=== PATIENT | female | born 1990 | race Caucasian/White ===

== ENCOUNTER → 2017-02-18 | Outpatient (CLI) | payer OTHER | LOC: MW.CHOBGYN 15:58 | PROVIDERS: ATTEND Advanced Practice Midwife | DX: Z34.90 Encounter for supervision of normal pregnancy, unspecified, unspecified trimester (principal) | CPT/HCPCS: 36415; 85025; 86592; 86762; 86803; 86850; 86900; 86901; 87340; 87389 ==

== ENCOUNTER → 2017-03-04 | Outpatient (CLI) | payer OTHER ==
--- NOTE | 2017-03-07 14:45 | US ---
EXAM DATE: 03/04/17 PATIENT'S AGE: 26 Patient: CIARA GARZA Facility: [place], [place] Site . Site : 1990 Study: OB Pelvis [id number] 4:39:43 PM Ordering Physician: Tu Pitts Final Report: INDICATION: anatomical survey TECHNIQUE: Ultrasound OB pelvis transabdominal. Real-time acharya-scale imaging of the fetus was performed as well as color Doppler and spectral Doppler analysis of the umbilical artery. COMPARISON: None. FINDINGS: Sonographic imaging demonstrates a single living intrauterine gestation. Fetus demonstrates a regular cardiac rate of 142 beats per minute. Fetus has a cephalic orientation. The placenta lies posterior with borderline previa. Amniotic fluid volume appears normal. ANATOMICAL SURVEY: Lateral ventricles: Normal Posterior fossa: Normal Face: Normal Profile: Normal Spine: Normal 4 chamber heart: Normal RVOT: Normal LVOT: Normal Diaphragm: Normal Stomach: Normal Kidneys: Normal Bladder: Normal Cord insertion: Normal 3 vessel cord: Normal 4 extremities: Normal BIOMETRY DATA: Biparietal diameter: 5.1 cm, 21 weeks 4 days. Head circumference: 19.3 cm, 21 weeks 3 days. Abdominal circumference: 16.3 cm, 21 weeks 3 days. Femur length: 3.4 cm, 20 weeks 6 days. H/A ratio is 1.16 which is within the normal range. EFW is 409 grams, 73%. Gestational age by LMP is 20 weeks 5 days. Gestational age by ultrasound is 21 weeks 2 days. Estimated date of delivery by LMP is July 17, 2017. Estimated date of delivery by ultrasound is July 13, 2017. IMPRESSION: 1.Single viable intrauterine . 2.No intrinsic abnormalities noted on anatomic survey. 3. Posterior placenta is low-lying. This should be further evaluated on subsequent ultrasound exams. Dictated by Yann Sanderson MD @ Mar 07 2017 7:51AM (Electronic Signature) Report Signed by Proxy. MI
== END ==
LOC: MW.US 14:30
PROVIDERS: ATTEND Advanced Practice Midwife
DX: Z34.90 Encounter for supervision of normal pregnancy, unspecified, unspecified trimester (principal)
CPT/HCPCS: 76805; 76805-26

== ENCOUNTER 2017-07-14 13:31 | Inpatient (IN) | payer OTHER ==
[2017-07-14] MEDS ORDERED: Butorphanol 1 MG/ML SDV IVPUSH PRN (14:06)
[2017-07-14] MEDS ORDERED: Carboprost Tromethamine 250 MCG/1 ML Amp IM PRN (14:06)
[2017-07-14] MEDS ORDERED: Sodium Chloride 0.9% 2.5 ML Syringe FLUSH PRN (14:06)
[2017-07-14] MEDS ORDERED: Lidocaine 1% 50 ML MDV INJECT PRN (14:06)
[2017-07-14] MEDS ORDERED: Misoprostol 200 MCG Tab PO PRN (14:06)
[2017-07-14] MEDS ORDERED: Methylergonovine 0.2 MG/1 ML Amp IM PRN (14:06)
[2017-07-14] MEDS ORDERED: Sodium Chloride 0.9% 10 ML Syringe FLUSH PRN (14:06)
[2017-07-14] MEDS ORDERED: Nalbuphine 10 MG/1 ML Vial IVPUSH PRN (14:06)
[2017-07-14] MEDS ORDERED: Water For Irrigation,Sterile 1,000 ML Container IRR PRN (14:06)
[2017-07-14] MEDS ORDERED: Oxytocin/Lactated Ringers 30 UNIT/500 ML BAG IV SCH (14:15)
[2017-07-14] MEDS ORDERED: Lactated Ringers 1,000 ML IV SCH (14:15)
[2017-07-14] MEDS ORDERED: oxyCODONE 5 MG Tab PO PRN (15:47)
[2017-07-14] MEDS ORDERED: Ibuprofen 400 MG Tab PO PRN (15:47)
[2017-07-14] MEDS ORDERED: Acetaminophen 500 MG Tab PO PRN ×2 (15:47)
[2017-07-14] MEDS ORDERED: Lanolin 100% Cream 7 GM Tube TOP PRN (15:47)
[2017-07-14] MEDS ORDERED: Witch Hazel Medicated Pads 40/Jar TOP PRN (15:47)
[2017-07-14] MEDS ORDERED: Benzocaine/Menthol 20%-0.5% Spray 78 GM Cannister TOP PRN (15:47)
[2017-07-14] MEDS ORDERED: Bisacodyl 10 MG Supp RECTAL PRN (15:47)
[2017-07-14] MEDS: Ibuprofen 800 MG Tab PO PRN (16:06)
--- NOTE | 2017-07-14 17:47 | PCM.LDHP ---
L&D History of Present Illness - General Date of Service: 07/14/17 Admit Problem/Dx: Patient Status Order with Admit Dx/Problem 07/14/17 13:43 Patient Status [ADT] Routine Admission Diagnosis/Problem Admission Diagnosis/Problem - planned 07/14/17 17:45 26 yo EDC 07/18/2017 at 39 3/7wks/ O neg, RI, GBS neg. Comes to L&D in active labor. 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 Social & Family History - Family History Cardiac: Reports: Hypertension, [place] OBGYN: Reports: Psychiatric: Reports: Schizophrenia Oncologic: Reports: Breast - Tobacco Use Smoking Status *Q: Never Smoker Second Hand Smoke Exposure: No - Caffeine Use Caffeine Use: Reports: Coffee - Recreational Drug Use Recreational Drug Use: No H&P Review of Systems - Review of Systems: Review Of Systems: See Below General: Reports: No Symptoms HEENT: Reports: No Symptoms Pulmonary: Reports: No Symptoms Cardiovascular: Reports: No Symptoms Gastrointestinal: Reports: No Symptoms Genitourinary: Reports: No Symptoms Musculoskeletal: Reports: No Symptoms Skin: Reports: No Symptoms Psychiatric: Reports: No Symptoms Neurological: Reports: No Symptoms Hematologic/Lymphatic: Reports: No Symptoms Immunologic: Reports: No Symptoms L&D Exam - Exam Exam: See Below - Vital Signs Weight: 95.254 kg - OB Specific Contraction Intensity: Strong Movement: Active Heart Tones: Present Presentation: Vertex - Exam General: Alert, Oriented, Cooperative HEENT: Hearing Intact Lungs: Normal Respiratory Effort GI/Abdominal Exam: Soft, Non-Tender, No Organomegaly (gravid) Rectal Exam: Deferred Genitourinary: Cervical dilitation Back Exam: Full Range of Motion Extremities: Normal Range of Motion, Non-Tender, No Pedal Edema, Normal Capillary Refill Skin: Warm, Dry, Intact Neurological: Cranial Nerves Intact Psychiatric: Alert, Normal Affect, Normal Mood - Patient Data Lab Results Last 24 hrs: Laboratory Results - last 24 hr 07/14/17 07/14/17 Range/Units 14:29 14:29 WBC 17.82 H (4.0-11.0) K/uL RBC 4.72 (4.30-5.90) M/uL Hgb 12.3 (12.0-16.0) g/dL Hct 38.0 (36.0-46.0) % MCV 80.5 (80.0-98.0) fL MCH 26.1 L (27.0-32.0) pg MCHC 32.4 (31.0-37.0) g/dL RDW Std Deviation 41.1 (28.0-62.0) fl RDW Coeff of [place] 14 (11.0-15.0) % Plt Count 246 (150-400) K/uL MPV 10.90 (7.40-12.00) fL Nucleated RBC % 0.0 /100WBC Nucleated RBCs # 0 K/uL Blood Type O NEGATIVE Antibody Screen NEGATIVE Result Diagrams: 07/14/17 14:29 - Problem List (1) Supervision of normal IUP (intrauterine ) in primigravida SNOMED Code(s): 20403602, 078470970, 871330470, 389476925 ICD Code: Z34.00 - ENCNTR FOR SUPRVSN OF NORMAL FIRST , UNSP TRIMESTER Status: Acute Priority: High Current Visit: Yes Qualifiers: Trimester: third trimester Qualified Code(s): Z34.03 - Encounter for supervision of normal first , third trimester Problem List Initiated/Reviewed/Updated: Yes Orders Last 24hrs: Active Orders 24 hr Category Date Time Status May Shower [RC] ASDIRECTED Care 07/14/17 14:07 Inactive May Shower [RC] ASDIRECTED Care 07/14/17 15:47 Active Notify Provider [RC] PRN Care 07/14/17 14:07 Inactive Up ad Lu [RC] ASDIRECTED Care 07/14/17 13:43 Inactive Up ad Lu [RC] ASDIRECTED Care 07/14/17 14:07 Inactive Up ad Lu [RC] ASDIRECTED Care 07/14/17 15:47 Active Vital Signs [RC] PER UNIT ROUTINE Care 07/14/17 13:43 Inactive Vital Signs [RC] PER UNIT ROUTINE Care 07/14/17 14:07 Inactive Vital Signs [RC] PER UNIT ROUTINE Care 07/14/17 15:47 Active Regular Diet [DIET] Diet 07/14/17 Dinner Active RHIG WORKUP, [BBK] Routine Lab 07/14/17 16:53 Received Acetaminophen [Tylenol Extra Strength] Med 07/14/17 15:47 Active 1,000 mg PO Q4H PRN Acetaminophen [Tylenol Extra Strength] Med 07/14/17 15:47 Active 500 mg PO Q4H PRN Benzocaine/Menthol [Dermoplast Pain Relief 20%-0.5% Med 07/14/17 15:47 Active [place]] 78 gm TOP ASDIRECTED PRN Bisacodyl [Dulcolax] Med 07/14/17 15:47 Active 10 mg RECTAL .ONCE PRN Docusate Sodium [Colace] Med 07/14/17 15:47 Active 100 mg PO BID PRN Hydrocortisone [Proctozone-HC 2.5% Crm] Med 07/14/17 19:00 Active 1 gm TOP 5XDAY Ibuprofen [Motrin] Med 07/14/17 15:47 Active 400 mg PO Q4H PRN Ibuprofen [Motrin] Med 07/14/17 15:47 Active 800 mg PO Q6H PRN Lanolin [Lansinoh HPA] Med 07/14/17 15:47 Active See Dose Instructions TOP ASDIRECTED PRN Witch Vera [Tucks] Med 07/14/17 15:47 Active 1 pad TOP ASDIRECTED PRN oxyCODONE Med 07/14/17 15:47 Active 5 mg PO Q2H PRN Assess Lochia [WOMSER] Per Unit Routine Oth 07/14/17 15:47 Ordered Assess Uterine Involution [WOMSER] Per Unit Routine Oth 07/14/17 15:47 Ordered Peripheral IV Discontinue [OM.PC] Routine Oth 07/14/17 15:47 Ordered Resuscitation Status Routine Resus Stat 07/14/17 15:47 Ordered Medication Orders Acetaminophen (Tylenol Extra Strength) 500 mg PO Q4H PRN PRN Reason: Pain Acetaminophen (Tylenol Extra Strength) 1,000 mg PO Q4H PRN PRN Reason: Pain Benzocaine/Menthol (Dermoplast Pain Relief 20%-0.5% [place]) 78 gm TOP ASDIRECTED PRN PRN Reason: Perineal Comfort Measure Last Admin: 07/14/17 16:05 Dose: 78 gm Bisacodyl (Dulcolax) 10 mg RECTAL .ONCE PRN PRN Reason: Constipation Docusate Sodium (Colace) 100 mg PO BID PRN PRN Reason: Constipation Emollient Ointment (Lansinoh Hpa) 0 gm TOP ASDIRECTED PRN PRN Reason: Sore Nipples Hydrocortisone (Proctozone-Hc 2.5% Crm) 1 gm TOP 5XDAY EMILY Ibuprofen (Motrin) 400 mg PO Q4H PRN PRN Reason: Pain Ibuprofen (Motrin) 800 mg PO Q6H PRN PRN Reason: Pain Last Admin: 07/14/17 16:06 Dose: 800 mg Oxycodone HCl (Oxycodone) 5 mg PO Q2H PRN PRN Reason: Pain Witch Vera (Tucks) 1 pad TOP ASDIRECTED PRN PRN Reason: comfort care Last Admin: 07/14/17 16:05 Dose: 1 tub Assessment/Plan Comment:: Labor A: 26 yo EDC 07/18/2017 at 39 3/7wks/ O neg, RI, GBS neg. Comes to L&D in active labor. P: Admit, epidural prn, anticipate LORRIE, Dr Melgar updated on pt status
--- NOTE | 2017-07-14 17:54 | PCM.DEL ---
L & D Note - General Info Date of Service: 07/14/17 Mother's Due Date: 07/18/17 - Delivery Note Labor: Spontaneous Delivery Outcome: Livebirth Infant Delivery Method: Spontaneous Vaginal Delivery-Single Presentation: Vertex Nuchal Cord: None Anesthesia Type: None Episiotomy Type: None Laceration: None Placenta: Intact, Spontaneous Cord: 3 Vessels Estimated Blood Loss: 100 Resuscitation Needed: No [place]: Stimulated Score 1 min: 8 Score 5 min: 10 Second Stage Interventions: Reports: Pushing Effectively, Pushing, Pulls Own Legs Back Delivery Comments (Free Text/Narrative):: of viable male over intact perineum. Head delivered with good pushing, shoulder and body followed with good maternal effort. Infant spot cough and cry placed on mothers abdomen with RN at for evaluation. Delayed cord clamping. Pitocin to IVF. Cord clamped and cut by FOB. Cord blood collected. Placenta delivered grossly intact with gentle traction. Inspection noted intact perineum and small upper labial lac that were hemo stable and no repair needed. EBL 100cc , APGARS 8/10, Wt: 9lb 7o 4270gm, Mother and left in stable condition for recovery bonding well. - General Info Date of Service: 07/14/17 Admission Dx/Problem (Free Text): Patient Status Order with Admit Dx/Problem 07/14/17 13:43 Patient Status [ADT] Routine Admission Diagnosis/Problem Admission Diagnosis/Problem - planned 07/14/17 17:45 26 yo EDC 07/18/2017 at 39 3/7wks/ O neg, RI, GBS neg. Comes to L&D in active labor. Functional Status: Reports: Pain Controlled - Review of Systems General: Reports: No Symptoms HEENT: Reports: No Symptoms Pulmonary: Reports: No Symptoms Cardiovascular: Reports: No Symptoms Gastrointestinal: Reports: No Symptoms Genitourinary: Reports: No Symptoms Musculoskeletal: Reports: No Symptoms Skin: Reports: No Symptoms Neurological: Reports: No Symptoms Psychiatric: Reports: No Symptoms - Patient Data Weight - Most Recent: 95.254 kg Lab Results Last 24 Hours: Laboratory Results - last 24 hr 07/14/17 07/14/17 Range/Units 14:29 14:29 WBC 17.82 H (4.0-11.0) K/uL RBC 4.72 (4.30-5.90) M/uL Hgb 12.3 (12.0-16.0) g/dL Hct 38.0 (36.0-46.0) % MCV 80.5 (80.0-98.0) fL MCH 26.1 L (27.0-32.0) pg MCHC 32.4 (31.0-37.0) g/dL RDW Std Deviation 41.1 (28.0-62.0) fl RDW Coeff of [place] 14 (11.0-15.0) % Plt Count 246 (150-400) K/uL MPV 10.90 (7.40-12.00) fL Nucleated RBC % 0.0 /100WBC Nucleated RBCs # 0 K/uL Blood Type O NEGATIVE Antibody Screen NEGATIVE Med Orders - Current: Current Medications Acetaminophen (Tylenol Extra Strength) 500 mg PO Q4H PRN PRN Reason: Pain Acetaminophen (Tylenol Extra Strength) 1,000 mg PO Q4H PRN PRN Reason: Pain Benzocaine/Menthol (Dermoplast Pain Relief 20%-0.5% [place]) 78 gm TOP ASDIRECTED PRN PRN Reason: Perineal Comfort Measure Last Admin: 07/14/17 16:05 Dose: 78 gm Bisacodyl (Dulcolax) 10 mg RECTAL .ONCE PRN PRN Reason: Constipation Docusate Sodium (Colace) 100 mg PO BID PRN PRN Reason: Constipation Emollient Ointment (Lansinoh Hpa) 0 gm TOP ASDIRECTED PRN PRN Reason: Sore Nipples Hydrocortisone (Proctozone-Hc 2.5% Crm) 1 gm TOP 5XDAY EMILY Ibuprofen (Motrin) 400 mg PO Q4H PRN PRN Reason: Pain Ibuprofen (Motrin) 800 mg PO Q6H PRN PRN Reason: Pain Last Admin: 07/14/17 16:06 Dose: 800 mg Oxycodone HCl (Oxycodone) 5 mg PO Q2H PRN PRN Reason: Pain Witch Vera (Tucks) 1 pad TOP ASDIRECTED PRN PRN Reason: comfort care Last Admin: 07/14/17 16:05 Dose: 1 tub Discontinued Medications Butorphanol Tartrate (Stadol) 1 mg IVPUSH Q1H PRN PRN Reason: Pain Carboprost Tromethamine (Hemabate Ds) 250 mcg IM ASDIRECTED PRN PRN Reason: Post Hemorrhage Lactated Ringer's (Ringers, Lactated) 1,000 mls @ 150 mls/hr IV ASDIRECTED EMILY Last Admin: 07/14/17 14:45 Dose: 150 mls/hr Oxytocin/Lactated Ringer's (Pitocin In Lr 30 Units/500 Ml) 30 unit in 500 mls @ 999 mls/hr IV TITRATE EMILY; 999 MUNITS/MIN PRN Reason: Protocol Stop: 07/14/17 14:46 Last Admin: 07/14/17 15:27 Dose: 999 munits/min, 999 mls/hr Lidocaine HCl (Xylocaine 1%) 50 ml INJECT .ONCE PRN PRN Reason: Laceration repair Methylergonovine Maleate (Methergine) 0.2 mg IM ASDIRECTED PRN PRN Reason: Post Hemorrhage Misoprostol (Cytotec) 200 mcg PO .ONCE PRN PRN Reason: Post Hemorrhage Nalbuphine HCl (Nubain) 10 mg IVPUSH Q1H PRN PRN Reason: Pain (severe 7-10) Sodium Chloride (Saline Flush) 10 ml FLUSH ASDIRECTED PRN PRN Reason: Keep Vein Open Sodium Chloride (Saline Flush) 2.5 ml FLUSH ASDIRECTED PRN PRN Reason: Keep Vein Open Sterile Water (Sterile Water For Irrigation) 1,000 ml IRR ASDIRECTED PRN PRN Reason: delivery Last Admin: 07/14/17 15:27 Dose: 1,000 ml - Exam General: Alert, Oriented, Cooperative, No Acute Distress Lungs: Normal Respiratory Effort GI/Abdominal Exam: Soft, Non-Tender, No Organomegaly, No Distention, No Mass, Pelvis Stable (Female) Exam: Normal External Exam, Normal Bimanual Exam, Vaginal Bleeding Back Exam: Full Range of Motion Extremities: Normal Range of Motion, Non-Tender, No Pedal Edema, Normal Capillary Refill Skin: Warm, Dry, Intact Wound/Incisions: Healing Well Neurological: No New Focal Deficit, Normal Speech, Normal Tone Psy/Mental Status: Alert, Normal Affect, Normal Mood - Problem List & Annotations (1) Supervision of normal IUP (intrauterine ) in primigravida SNOMED Code(s): 13574927, 566241608, 016486658, 346901575 Code(s): Z34.00 - ENCNTR FOR SUPRVSN OF NORMAL FIRST , UNSP TRIMESTER Status: Acute Priority: High Current Visit: Yes Qualifiers: Trimester: third trimester Qualified Code(s): Z34.03 - Encounter for supervision of normal first , third trimester (2) (normal spontaneous vaginal delivery) SNOMED Code(s): 88056079 Code(s): O80 - ENCOUNTER FOR FULL-TERM UNCOMPLICATED DELIVERY Status: Acute Priority: High Current Visit: Yes - Problem List Review Problem List Initiated/Reviewed/Updated: Yes - My Orders Last 24 Hours: My Active Orders 07/14/17 14:07 May Shower [RC] ASDIRECTED Notify Provider [RC] PRN Up ad Lu [RC] ASDIRECTED Vital Signs [RC] PER UNIT ROUTINE 07/14/17 15:47 May Shower [RC] ASDIRECTED Up ad Lu [RC] ASDIRECTED Vital Signs [RC] PER UNIT ROUTINE Acetaminophen [Tylenol Extra Strength] 1,000 mg PO Q4H PRN Acetaminophen [Tylenol Extra Strength] 500 mg PO Q4H PRN Benzocaine/Menthol [Dermoplast Pain Relief 20%-0.5% [place]] 78 gm TOP ASDIRECTED PRN Bisacodyl [Dulcolax] 10 mg RECTAL .ONCE PRN Docusate Sodium [Colace] 100 mg PO BID PRN Ibuprofen [Motrin] 400 mg PO Q4H PRN Ibuprofen [Motrin] 800 mg PO Q6H PRN Lanolin [Lansinoh HPA] See Dose Instructions TOP ASDIRECTED PRN Witch Vera [Tucks] 1 pad TOP ASDIRECTED PRN oxyCODONE 5 mg PO Q2H PRN Assess Lochia [WOMSER] Per Unit Routine Assess Uterine Involution [WOMSER] Per Unit Routine Peripheral IV Discontinue [OM.PC] Routine Resuscitation Status Routine 07/14/17 16:53 RHIG WORKUP, [BBK] Routine 07/14/17 19:00 Hydrocortisone [Proctozone-HC 2.5% Crm] 1 gm TOP 5XDAY 07/14/17 Dinner Regular Diet [DIET] - Assessment Assessment:: Delivery: A: of viable male over intact perineum. APGARS 8/10, Wt: 9lb 7oz, 4270gm, Intact perineum intact, EBL 100cc, Stable - Plan Plan:: Labor A: 26 yo EDC 07/18/2017 at 39 3/7wks/ O neg, RI, GBS neg. Comes to L&D in active labor. P: Admit, epidural prn, anticipate SVE, Dr Melgar updated on pt status Delivery P: Routine pp plan of care
[2017-07-14] MEDS: Hydrocortisone 2.5% Crm 30 GM Tube TOP SCH (21:50)
[2017-07-14] MEDS: Docusate Sodium 100 MG Cap PO PRN (21:51)
[2017-07-15] MEDS: Hydrocortisone 2.5% Crm 30 GM Tube TOP SCH (01:11)
[2017-07-15] MEDS: Ibuprofen 800 MG Tab PO PRN ×2 (04:43→11:31)
--- NOTE | 2017-07-15 08:02 | PCM.DCSUM1 ---
Discharge Summary - Hospital Course Free Text/Narrative:: Discharge home with , follow up 6 weeks or sooner if needed. - Discharge Data Discharge Date: 07/15/17 Discharge Disposition: Home, Self-Care 01 Condition: Good - Discharge Diagnosis/Problem(s) (1) Supervision of normal IUP (intrauterine ) in primigravida SNOMED Code(s): 41314568, 581173793, 812760831, 949689687 ICD Code: Z34.00 - ENCNTR FOR SUPRVSN OF NORMAL FIRST , UNSP TRIMESTER Status: Acute Priority: High Current Visit: Yes Qualifiers: Trimester: third trimester Qualified Code(s): Z34.03 - Encounter for supervision of normal first , third trimester (2) (normal spontaneous vaginal delivery) SNOMED Code(s): 57879820 ICD Code: O80 - ENCOUNTER FOR FULL-TERM UNCOMPLICATED DELIVERY Status: Acute Priority: High Current Visit: Yes - Patient Instructions Diet: Usual Diet as Tolerated Activity: As Tolerated, Rest and Relax Today Driving: May Drive Today Showering/Bathing: May Shower Notify Provider of: Fever, Increased Pain, Drainage, Nausea and/or Vomiting Other/Special Instructions: Discharge home with , follow up 6 weeks or sooner if needed. - Discharge Plan Referrals: [facility] [Outside] Gisselle Mae CNM [Mid-] - 08/25/17 3:00 pm - General Info Date of Service: 07/15/17 Admission Dx/Problem (Free Text: Patient Status Order with Admit Dx/Problem 07/14/17 13:43 Patient Status [ADT] Routine Admission Diagnosis/Problem Admission Diagnosis/Problem - planned 07/14/17 17:45 26 yo EDC 07/18/2017 at 39 3/7wks/ O neg, RI, GBS neg. Comes to L&D in active labor. Functional Status: Reports: Pain Controlled, Tolerating Diet, Ambulating, Urinating - Review of Systems General: Reports: No Symptoms HEENT: Reports: No Symptoms Pulmonary: Reports: No Symptoms Cardiovascular: Reports: No Symptoms Gastrointestinal: Reports: No Symptoms Genitourinary: Reports: No Symptoms Musculoskeletal: Reports: No Symptoms Skin: Reports: No Symptoms Neurological: Reports: No Symptoms Psychiatric: Reports: No Symptoms - Patient Data Vitals - Most Recent: Last Vital Signs Temp 35.9 C 07/15/17 04:15 Pulse 84 07/15/17 04:15 Resp 18 07/15/17 04:15 BP 130/88 07/15/17 04:15 Pulse Ox 100 07/15/17 04:15 Weight - Most Recent: 95.254 kg Lab Results - Last 24 hrs: Laboratory Results - last 24 hr 07/14/17 07/14/17 07/14/17 Range/Units 14:29 14:29 16:53 WBC 17.82 H (4.0-11.0) K/uL RBC 4.72 (4.30-5.90) M/uL Hgb 12.3 (12.0-16.0) g/dL Hct 38.0 (36.0-46.0) % MCV 80.5 (80.0-98.0) fL MCH 26.1 L (27.0-32.0) pg MCHC 32.4 (31.0-37.0) g/dL RDW Std Deviation 41.1 (28.0-62.0) fl RDW Coeff of [place] 14 (11.0-15.0) % Plt Count 246 (150-400) K/uL MPV 10.90 (7.40-12.00) fL Nucleated RBC % 0.0 /100WBC Nucleated RBCs # 0 K/uL Blood Type O NEGATIVE Antibody Screen NEGATIVE Screen NEGATIVE RhIG Candidate? YES Rhogam Indicated YES, BABY RH POS H Med Orders - Current: Current Medications Acetaminophen (Tylenol Extra Strength) 500 mg PO Q4H PRN PRN Reason: Pain Acetaminophen (Tylenol Extra Strength) 1,000 mg PO Q4H PRN PRN Reason: Pain Benzocaine/Menthol (Dermoplast Pain Relief 20%-0.5% [place]) 78 gm TOP ASDIRECTED PRN PRN Reason: Perineal Comfort Measure Last Admin: 07/14/17 16:05 Dose: 78 gm Bisacodyl (Dulcolax) 10 mg RECTAL .ONCE PRN PRN Reason: Constipation Docusate Sodium (Colace) 100 mg PO BID PRN PRN Reason: Constipation Last Admin: 07/14/17 21:51 Dose: 100 mg Emollient Ointment (Lansinoh Hpa) 0 gm TOP ASDIRECTED PRN PRN Reason: Sore Nipples Last Admin: 07/14/17 23:41 Dose: 1 tube Hydrocortisone (Proctozone-Hc 2.5% Crm) 1 gm TOP 5XDAY EMILY Last Admin: 07/15/17 01:11 Dose: Not Given Ibuprofen (Motrin) 400 mg PO Q4H PRN PRN Reason: Pain Ibuprofen (Motrin) 800 mg PO Q6H PRN PRN Reason: Pain Last Admin: 07/15/17 04:43 Dose: 800 mg Oxycodone HCl (Oxycodone) 5 mg PO Q2H PRN PRN Reason: Pain Witch Vera (Tucks) 1 pad TOP ASDIRECTED PRN PRN Reason: comfort care Last Admin: 07/14/17 16:05 Dose: 1 tub Discontinued Medications Butorphanol Tartrate (Stadol) 1 mg IVPUSH Q1H PRN PRN Reason: Pain Carboprost Tromethamine (Hemabate Ds) 250 mcg IM ASDIRECTED PRN PRN Reason: Post Hemorrhage Lactated Ringer's (Ringers, Lactated) 1,000 mls @ 150 mls/hr IV ASDIRECTED EMILY Last Admin: 07/14/17 14:45 Dose: 150 mls/hr Oxytocin/Lactated Ringer's (Pitocin In Lr 30 Units/500 Ml) 30 unit in 500 mls @ 999 mls/hr IV TITRATE EMILY; 999 MUNITS/MIN PRN Reason: Protocol Stop: 07/14/17 14:46 Last Admin: 07/14/17 15:27 Dose: 999 munits/min, 999 mls/hr Lidocaine HCl (Xylocaine 1%) 50 ml INJECT .ONCE PRN PRN Reason: Laceration repair Methylergonovine Maleate (Methergine) 0.2 mg IM ASDIRECTED PRN PRN Reason: Post Hemorrhage Misoprostol (Cytotec) 200 mcg PO .ONCE PRN PRN Reason: Post Hemorrhage Nalbuphine HCl (Nubain) 10 mg IVPUSH Q1H PRN PRN Reason: Pain (severe 7-10) Sodium Chloride (Saline Flush) 10 ml FLUSH ASDIRECTED PRN PRN Reason: Keep Vein Open Sodium Chloride (Saline Flush) 2.5 ml FLUSH ASDIRECTED PRN PRN Reason: Keep Vein Open Sterile Water (Sterile Water For Irrigation) 1,000 ml IRR ASDIRECTED PRN PRN Reason: delivery Last Admin: 07/14/17 15:27 Dose: 1,000 ml - Exam General: Reports: Alert, Oriented, Cooperative, No Acute Distress Lungs: Reports: Normal Respiratory Effort GI/Abdominal Exam: Soft, Non-Tender, No Organomegaly, No Distention, No Mass, Pelvis Stable (Female) Exam: Vaginal Bleeding Rectal (Female) Exam: Deferred Back Exam: Reports: Full Range of Motion Extremities: Normal Range of Motion, Non-Tender, No Pedal Edema, Normal Capillary Refill Skin: Reports: Warm, Dry, Intact Wound/Incisions: Reports: Healing Well Neurological: Reports: No New Focal Deficit, Normal Speech, Normal Tone Psy/Mental Status: Reports: Alert, Normal Affect, Normal Mood *Q Meaningful Use (DIS) - VTE *Q VTE Criteria *Q: - Stroke *Q Stroke Criteria *Q: - AMI *Q AMI Criteria *Q:
[2017-07-15] MEDS: Docusate Sodium 100 MG Cap PO PRN (11:31)
[2017-07-15 15:02] VITALS: BP 118/72
== END 2017-07-15 17:58 | disposition home or self-care (01) | DRG 775 ==
LOC: MW.OBCHECK 13:31 → MW.OB 13:34 → MW.OBCHECK 14:00 → MW.OB 14:06 → OBSVTOIN 15:27 → MW.OB 23:54
PROVIDERS: ADMIT Obstetrics & Gynecology; ATTEND Obstetrics & Gynecology
PROC: 10E0XZZ Delivery of Products of Conception, External Approach (ICD-10-PCS; principal; 2017-07-14)
DX: O80 Encounter for full-term uncomplicated delivery (principal); Z3A.39 39 weeks gestation of pregnancy; Z37.0 Single live birth
CPT/HCPCS: 36415; 59025; 85027; 85460; 86850; 86900; 86901; A9270-GY; J2790; J7120

== ENCOUNTER 2018-11-15 19:29 | Inpatient (IN) | payer OTHER ==
[2018-11-15] MEDS ORDERED: Nalbuphine 10 MG/1 ML Vial IVPUSH PRN (19:37)
[2018-11-15] MEDS ORDERED: Methylergonovine 0.2 MG/1 ML Amp IM PRN (19:37)
[2018-11-15] MEDS ORDERED: Butorphanol 1 MG/ML SDV IVPUSH PRN (19:37)
[2018-11-15] MEDS ORDERED: Water For Irrigation,Sterile 1,000 ML Container IRR PRN (19:37)
[2018-11-15] MEDS ORDERED: Sodium Chloride 0.9% 10 ML Syringe FLUSH PRN (19:37)
[2018-11-15] MEDS ORDERED: Sodium Chloride 0.9% 2.5 ML Syringe FLUSH PRN (19:37)
[2018-11-15] MEDS ORDERED: Tranexamic Acid 1,000 MG in Sodium Chloride 0.9% 100 ML IV PRN (19:37)
[2018-11-15] MEDS ORDERED: Carboprost Tromethamine 250 MCG/1 ML Amp IM PRN (19:37)
[2018-11-15] MEDS ORDERED: Lidocaine 1% 50 ML MDV INJECT PRN (19:37)
[2018-11-15] MEDS ORDERED: Misoprostol 200 MCG Tab PO PRN (19:37)
[2018-11-15] MEDS ORDERED: Lactated Ringers 1,000 ML IV SCH (19:45)
[2018-11-15] MEDS ORDERED: Oxytocin/0.9 % Sodium Chloride 30 UNIT/500 ML BAG IV SCH (19:45)
[2018-11-15] MEDS ORDERED: Oxytocin 10 Units/1 ML SDV ONE (19:55)
[2018-11-15] MEDS ORDERED: Docusate Sodium 100 MG Cap PO PRN (20:14)
[2018-11-15] MEDS ORDERED: Acetaminophen 500 MG Tab PO PRN ×2 (20:14)
[2018-11-15] MEDS ORDERED: Bisacodyl 10 MG Supp RECTAL PRN (20:14)
[2018-11-15] MEDS ORDERED: oxyCODONE 5 MG Tab PO PRN (20:14)
[2018-11-15] MEDS ORDERED: Ibuprofen 400 MG Tab PO PRN (20:14)
[2018-11-15] MEDS ORDERED: Witch Hazel Medicated Pads 40/Jar TOP PRN (20:14)
[2018-11-15] MEDS ORDERED: Benzocaine/Menthol 20%-0.5% Spray 78 GM Cannister TOP PRN (20:14)
[2018-11-15] MEDS ORDERED: Lanolin 100% Cream 7 GM Tube TOP PRN (20:14)
--- NOTE | 2018-11-15 20:17 | PCM.LDHP ---
L&D History of Present Illness - General Date of Service: 11/15/18 Admit Problem/Dx: Patient Status Order with Admit Dx/Problem 11/15/18 19:37 Patient Status [ADT] Routine 11/15/18 20:14 Patient Status [ADT] Routine Admission Diagnosis/Problem Admission Diagnosis/Problem Source of Information: Patient History Limitations: Reports: No Limitations - History of Present Illness Improves with: Reports: None Worsens with: Reports: None Associated Symptoms: Reports: N - Related Data Allergies/Adverse Reactions: Allergies Allergy/AdvReac Type Severity Reaction Status Date / Time No Known Allergies Allergy Verified 07/14/17 13:40 Past Medical History [employer] History: Reports: - Infectious Disease History Infectious Disease History: Reports: Chicken Pox, Mononucleosis - Past Surgical History HEENT Surgical History: Reports: Oral Surgery Musculoskeletal Surgical History: Reports: Shoulder Surgery Other Musculoskeletal Surgeries/Procedures:: Right shoulder surgery x2. Social & Family History - Family History Cardiac: Reports: Hypertension, [place] OBGYN: Reports: Psychiatric: Reports: Schizophrenia Oncologic: Reports: Breast - Caffeine Use Caffeine Use: Reports: Coffee H&P Review of Systems - Review of Systems: Review Of Systems: See Below General: Reports: No Symptoms HEENT: Reports: No Symptoms Pulmonary: Reports: No Symptoms Cardiovascular: Reports: No Symptoms Gastrointestinal: Reports: No Symptoms Genitourinary: Reports: No Symptoms Musculoskeletal: Reports: No Symptoms Skin: Reports: No Symptoms Psychiatric: Reports: No Symptoms Neurological: Reports: No Symptoms Hematologic/Lymphatic: Reports: No Symptoms Immunologic: Reports: No Symptoms L&D Exam - Exam Exam: See Below - OB Specific Fundal Height In cm: 38 Contraction Intensity: Moderate to Strong Movement: Active Heart Tones: Present Presentation: Vertex - Morgan Score Morgan Score Cervix Position: Anterior Morgan Score Effacement: >80% Morgan Score Dilation: > 5 cm Morgan Score Infant's Station: -1 ,0 - Exam General: Alert, Oriented HEENT: PERRLA, Conjunctiva Clear, EACs Clear, EOMI, Hearing Intact, Mucosa Moist & [place], Nares Patent, Normal Nasal Septum, Posterior Pharynx Clear, TMs Clear Neck: Supple, Trachea Midline Lungs: Clear to Auscultation, Normal Respiratory Effort Cardiovascular: Regular Rate, Regular Rhythm GI/Abdominal Exam: Normal Bowel Sounds, Soft, Non-Tender, No Organomegaly, No Distention, No Abnormal Bruit, No Mass, Pelvis Stable Rectal Exam: Normal Exam, Normal Rectal Tone Genitourinary: Normal external exam, Normal bimanual exam, Normal speculum exam Back Exam: Normal Inspection, Full Range of Motion Extremities: Normal Inspection, Normal Range of Motion, Non-Tender, No Pedal Edema, Normal Capillary Refill Skin: Warm, Dry, Intact Neurological: Cranial Nerves Intact, Reflexes Equal Bilateral Psychiatric: Alert, Normal Affect, Normal Mood Problem List Initiated/Reviewed/Updated: Yes Orders Last 24hrs: Active Orders 24 hr Category Date Time Status Patient Status [ADT] Routine ADT 11/15/18 20:14 Ordered Heart Tones [RC] CONTINUOUS Care 11/15/18 19:37 Active Non Stress Test [RC] PER UNIT ROUTINE Care 11/15/18 19:37 Active May Shower [RC] ASDIRECTED Care 11/15/18 19:37 Active May Shower [RC] ASDIRECTED Care 11/15/18 20:14 Ordered Notify Provider [RC] PRN Care 11/15/18 19:37 Active Up ad Lu [RC] ASDIRECTED Care 11/15/18 19:37 Active Up ad Lu [RC] ASDIRECTED Care 11/15/18 20:14 Ordered Vaginal Exam [RC] PRN Care 11/15/18 19:37 Active Vital Signs [RC] PER UNIT ROUTINE Care 11/15/18 19:37 Active Vital Signs [RC] PER UNIT ROUTINE Care 11/15/18 20:14 Ordered Clear Liquid Diet [DIET] Diet 11/16/18 Breakfast Active CBC W/O DIFF,HEMOGRAM [HEME] Routine Lab 11/15/18 19:37 Ordered HEMOGLOBIN/HEMATOCRIT,HH [HEME] Timed Lab 11/16/18 05:11 Ordered TYPE AND SCREEN [BBK] Routine Lab 11/15/18 19:37 Ordered Acetaminophen [Tylenol Extra Strength] Med 11/15/18 20:14 Ordered 1,000 mg PO Q4H PRN Acetaminophen [Tylenol Extra Strength] Med 11/15/18 20:14 Ordered 500 mg PO Q4H PRN Benzocaine/Menthol [Dermoplast Pain Relief 20%-0.5% Med 11/15/18 20:14 Ordered [place]] 78 gm TOP ASDIRECTED PRN Bisacodyl [Dulcolax] Med 11/15/18 20:14 Ordered 10 mg RECTAL ONETIME PRN Butorphanol [Stadol] Med 11/15/18 19:37 Active 1 mg IVPUSH Q1H PRN Carboprost Tromethamine [Hemabate DS] Med 11/15/18 19:37 Active 250 mcg IM ASDIRECTED PRN Docusate Sodium [Colace] Med 11/15/18 20:14 Ordered 100 mg PO BID PRN Ibuprofen [Motrin] Med 11/15/18 20:14 Ordered 400 mg PO Q4H PRN Ibuprofen [Motrin] Med 11/15/18 20:14 Ordered 800 mg PO Q6H PRN Lactated Ringers [Ringers, Lactated] 1,000 ml Med 11/15/18 19:45 Active IV ASDIRECTED Lanolin [Lansinoh HPA] Med 11/15/18 20:14 Ordered See Dose Instructions TOP ASDIRECTED PRN Lidocaine 1% [Xylocaine 1%] Med 11/15/18 19:37 Active 50 ml INJECT ONETIME PRN Methylergonovine [Methergine] Med 11/15/18 19:37 Active 0.2 mg IM ASDIRECTED PRN Nalbuphine [Nubain] Med 11/15/18 19:37 Active 10 mg IVPUSH Q1H PRN Oxytocin/0.9 % Sodium Chloride [Oxytocin 30 Unit/500 ML Med 11/15/18 19:45 Active -NS] 30 unit in 500 ml IV TITRATE Sodium Chloride 0.9% [Saline Flush] Med 11/15/18 19:37 Active 10 ml FLUSH ASDIRECTED PRN Sodium Chloride 0.9% [Saline Flush] Med 11/15/18 19:37 Active 2.5 ml FLUSH ASDIRECTED PRN Tranexamic Acid [Cyklokapron] 1,000 mg Med 11/15/18 19:37 Active Sodium Chloride 0.9% [Normal Saline] 100 ml IV ONETIME Water For Irrigation,Sterile [Sterile Water for Med 11/15/18 19:37 Active Irrigation] 1,000 ml IRR ASDIRECTED PRN Witch Vera [Tucks] Med 11/15/18 20:14 Ordered 1 pad TOP ASDIRECTED PRN miSOPROStol [Cytotec] Med 11/15/18 19:37 Active 200 mcg PO ONETIME PRN oxyCODONE Med 11/15/18 20:14 Ordered 5 mg PO Q2H PRN Assess Lochia [WOMSER] Per Unit Routine Ot 11/15/18 20:14 Ordered Assess Uterine Involution [WOMSER] Per Unit Routine Ot 11/15/18 20:14 Ordered Scalp Electrode [WOMSER] Per Unit Routine Ot 11/15/18 19:37 Ordered Peripheral IV Discontinue [OM.PC] Routine Oth 11/15/18 20:14 Ordered Peripheral IV Insertion Adult [OM.PC] Routine Ot 11/15/18 19:37 Ordered Resuscitation Status Routine Resus Stat 11/15/18 19:37 Ordered Medication Orders Butorphanol Tartrate (Stadol) 1 mg IVPUSH Q1H PRN PRN Reason: Pain Carboprost Tromethamine (Hemabate Ds) 250 mcg IM ASDIRECTED PRN PRN Reason: Post Hemorrhage Lactated Ringer's (Ringers, Lactated) 1,000 mls @ 150 mls/hr IV ASDIRECTED EMILY Oxytocin/Sodium Chloride (Oxytocin 30 Unit/500 Ml-Ns) 30 unit in 500 mls @ 500 mls/hr IV TITRATE EMILY Tranexamic Acid 1,000 mg/ (Sodium Chloride) 110 mls @ 660 mls/hr IV ONETIME PRN PRN Reason: Bleeding Lidocaine HCl (Xylocaine 1%) 50 ml INJECT ONETIME PRN PRN Reason: Laceration repair Methylergonovine Maleate (Methergine) 0.2 mg IM ASDIRECTED PRN PRN Reason: Post Hemorrhage Misoprostol (Cytotec) 200 mcg PO ONETIME PRN PRN Reason: Post Hemorrhage Nalbuphine HCl (Nubain) 10 mg IVPUSH Q1H PRN PRN Reason: Pain (severe 7-10) Sodium Chloride (Saline Flush) 10 ml FLUSH ASDIRECTED PRN PRN Reason: Keep Vein Open Sodium Chloride (Saline Flush) 2.5 ml FLUSH ASDIRECTED PRN PRN Reason: Keep Vein Open Sterile Water (Sterile Water For Irrigation) 1,000 ml IRR ASDIRECTED PRN PRN Reason: delivery
[2018-11-15] MEDS: Ibuprofen 800 MG Tab PO PRN (22:19)
--- NOTE | 2018-11-16 00:46 | OR ---
SURGEON: Patrick Melgar MD DATE OF PROCEDURE: A 28-year-old patient. She is para 1-0-0-1. She was seen primarily by our nurse practicing urologist. She is term. She is 39 plus weeks. She came here in active labor. At the time of admission, she was 4 to 5 with ashley every 1 to 2 minutes. heart rate the next thing was the patient has moved precipitously to be complete-complete and ready to push. I was called, but I did not arrive in time. By the time I arrived, the fetus was delivered; however, the placenta . The fetus cried immediately. The delivery was attended by a nurse, and I delivered the placenta without any problem, and there was no perineal or labial laceration. Estimated blood loss is 250 to 300 mL. A few minute of heart rate was category I. There was no complication in the labor and the of this patient. MASSIEL / DAVONTE /[id number]
[2018-11-16] MEDS: Ibuprofen 800 MG Tab PO PRN (09:36)
--- NOTE | 2018-11-16 09:47 | PCM.PNPP ---
- General Info Date of Service: 11/16/18 Functional Status: Reports: Pain Controlled - Review of Systems General: Reports: No Symptoms HEENT: Reports: No Symptoms Pulmonary: Reports: No Symptoms Cardiovascular: Reports: No Symptoms Gastrointestinal: Reports: No Symptoms Genitourinary: Reports: No Symptoms Musculoskeletal: Reports: No Symptoms Skin: Reports: No Symptoms Neurological: Reports: No Symptoms Psychiatric: Reports: No Symptoms - General Info Date of Service: 11/16/18 - Patient Data Vital Signs - Most Recent: Last Vital Signs Temp 35.9 C 11/16/18 05:05 Pulse 78 11/16/18 05:05 Resp 16 11/16/18 05:05 BP 120/77 11/16/18 05:05 Pulse Ox 98 11/16/18 05:05 Lab Results - Last 24 Hours: Laboratory Results - last 24 hr 11/15/18 11/15/18 11/16/18 Range/Units 20:50 20:50 06:05 WBC 11.28 H (4.0-11.0) K/uL RBC 4.63 (4.30-5.90) M/uL Hgb 11.6 L 10.9 L (12.0-16.0) g/dL Hct 35.3 L 34.4 L (36.0-46.0) % MCV 76.2 L (80.0-98.0) fL MCH 25.1 L (27.0-32.0) pg MCHC 32.9 (31.0-37.0) g/dL RDW Std Deviation 44.5 (28.0-62.0) fl RDW Coeff of [place] 16 H (11.0-15.0) % Plt Count 186 (150-400) K/uL MPV 10.80 (7.40-12.00) fL Nucleated RBC % 0.0 /100WBC Nucleated RBCs # 0 K/uL Blood Type O NEGATIVE Antibody Screen POSITIVE Antibody Identification Inconclusive Med Orders - Current: Current Medications Acetaminophen (Tylenol Extra Strength) 500 mg PO Q4H PRN PRN Reason: Pain Acetaminophen (Tylenol Extra Strength) 1,000 mg PO Q4H PRN PRN Reason: Pain Benzocaine/Menthol (Dermoplast Pain Relief 20%-0.5% [place]) 78 gm TOP ASDIRECTED PRN PRN Reason: Perineal Comfort Measure Last Admin: 11/15/18 22:25 Dose: 1 can Bisacodyl (Dulcolax) 10 mg RECTAL ONETIME PRN PRN Reason: Constipation Butorphanol Tartrate (Stadol) 1 mg IVPUSH Q1H PRN PRN Reason: Pain Carboprost Tromethamine (Hemabate Ds) 250 mcg IM ASDIRECTED PRN PRN Reason: Post Hemorrhage Docusate Sodium (Colace) 100 mg PO BID PRN PRN Reason: Constipation Emollient Ointment (Lansinoh Hpa) 0 gm TOP ASDIRECTED PRN PRN Reason: Sore Nipples Last Admin: 11/15/18 22:24 Dose: 7 gm Lactated Ringer's (Ringers, Lactated) 1,000 mls @ 150 mls/hr IV ASDIRECTED EMILY Oxytocin/Sodium Chloride (Oxytocin 30 Unit/500 Ml-Ns) 30 unit in 500 mls @ 500 mls/hr IV TITRATE EMILY Tranexamic Acid 1,000 mg/ (Sodium Chloride) 110 mls @ 660 mls/hr IV ONETIME PRN PRN Reason: Bleeding Ibuprofen (Motrin) 400 mg PO Q4H PRN PRN Reason: Pain Ibuprofen (Motrin) 800 mg PO Q6H PRN PRN Reason: Pain Last Admin: 11/16/18 09:36 Dose: 800 mg Lidocaine HCl (Xylocaine 1%) 50 ml INJECT ONETIME PRN PRN Reason: Laceration repair Methylergonovine Maleate (Methergine) 0.2 mg IM ASDIRECTED PRN PRN Reason: Post Hemorrhage Misoprostol (Cytotec) 200 mcg PO ONETIME PRN PRN Reason: Post Hemorrhage Nalbuphine HCl (Nubain) 10 mg IVPUSH Q1H PRN PRN Reason: Pain (severe 7-10) Oxycodone HCl (Oxycodone) 5 mg PO Q2H PRN PRN Reason: Pain Sodium Chloride (Saline Flush) 10 ml FLUSH ASDIRECTED PRN PRN Reason: Keep Vein Open Sodium Chloride (Saline Flush) 2.5 ml FLUSH ASDIRECTED PRN PRN Reason: Keep Vein Open Sterile Water (Sterile Water For Irrigation) 1,000 ml IRR ASDIRECTED PRN PRN Reason: delivery Witch Vera (Tucks) 1 pad TOP ASDIRECTED PRN PRN Reason: comfort care Discontinued Medications Oxytocin (Pitocin) Confirm Administered Dose 10 unit .ROUTE .STK-MED ONE Stop: 11/15/18 19:56 Last Admin: 11/15/18 20:18 Dose: 10 unit - Infant Interaction Infant Disposition, : [place] in Room with Family Interaction: Holding Feeding: Attempted ; Nursed Fair/Poor Support Person: , Mother - Recovery Exam Fundal Tone: Firm Fundal Level: At Umbilicus Fundal Placement: Midline Lochia Amount: Scant Lochia Color: Rubra/Red Perineum Description: Intact, Minimal Bruising/Swelling Episiotomy/Laceration: None Bladder Status: Voiding - Exam General: Alert, Oriented HEENT: Pupils Equal Neck: Supple Lungs: Clear to Auscultation, Normal Respiratory Effort Cardiovascular: Regular Rate, Regular Rhythm GI/Abdominal Exam: Normal Bowel Sounds, Soft, Non-Tender, No Organomegaly, No Distention, No Abnormal Bruit, No Mass, Pelvis Stable Extremities: Normal Inspection, Normal Range of Motion, Non-Tender, No Pedal Edema, Normal Capillary Refill Skin: Warm, Dry, Intact Wound/Incisions: Healing Well Neurological: No New Focal Deficit Psy/Mental Status: Alert, Normal Affect, Normal Mood - Problem List Review Problem List Initiated/Reviewed/Updated: Yes - My Orders Last 24 Hours: My Active Orders 11/15/18 20:14 Patient Status [ADT] Routine May Shower [RC] ASDIRECTED Up ad Lu [RC] ASDIRECTED Vital Signs [RC] PER UNIT ROUTINE Acetaminophen [Tylenol Extra Strength] 1,000 mg PO Q4H PRN Acetaminophen [Tylenol Extra Strength] 500 mg PO Q4H PRN Benzocaine/Menthol [Dermoplast Pain Relief 20%-0.5% [place]] 78 gm TOP ASDIRECTED PRN Bisacodyl [Dulcolax] 10 mg RECTAL ONETIME PRN Docusate Sodium [Colace] 100 mg PO BID PRN Ibuprofen [Motrin] 400 mg PO Q4H PRN Ibuprofen [Motrin] 800 mg PO Q6H PRN Lanolin [Lansinoh HPA] See Dose Instructions TOP ASDIRECTED PRN Witch Vera [Tucks] 1 pad TOP ASDIRECTED PRN oxyCODONE 5 mg PO Q2H PRN Assess Lochia [WOMSER] Per Unit Routine Assess Uterine Involution [WOMSER] Per Unit Routine Peripheral IV Discontinue [OM.PC] Routine 11/16/18 Breakfast Regular Diet [DIET]
[2018-11-16 21:04] VITALS: BP 132/88
== END 2018-11-16 22:35 | disposition home or self-care (01) | DRG 807 ==
LOC: MW.OBCHECK 19:29 → MW.OB 19:37 → OBSVTOIN 20:05 → MW.OB 22:40
PROVIDERS: ADMIT Obstetrics & Gynecology; ATTEND Obstetrics & Gynecology
PROC: 10E0XZZ Delivery of Products of Conception, External Approach (ICD-10-PCS; principal; 2018-11-15)
DX: O62.3 Precipitate labor (principal); Z37.0 Single live birth; Z3A.39 39 weeks gestation of pregnancy
CPT/HCPCS: 36415; 59025; 59409; 85014; 85018; 85027; 86850; 86870; 86900; 86901; A9270-GY; J2590

== ENCOUNTER 2020-01-05 12:00 | Inpatient (IN) | payer OTHER ==
[2020-01-05] MEDS ORDERED: Carboprost Tromethamine 250 MCG/1 ML Amp IM PRN (12:51)
[2020-01-05] MEDS ORDERED: Sodium Chloride 0.9% 2.5 ML Syringe FLUSH PRN (12:51)
[2020-01-05] MEDS ORDERED: Sodium Chloride 0.9% 10 ML Syringe FLUSH PRN (12:51)
[2020-01-05] MEDS ORDERED: Butorphanol 1 MG/ML SDV IVPUSH PRN (12:51)
[2020-01-05] MEDS ORDERED: Nalbuphine 10 MG/1 ML Vial IVPUSH PRN (12:51)
[2020-01-05] MEDS ORDERED: Misoprostol 200 MCG Tab PO PRN (12:51)
[2020-01-05] MEDS ORDERED: Water For Irrigation,Sterile 1,000 ML Container IRR PRN (12:51)
[2020-01-05] MEDS ORDERED: Tranexamic Acid 1,000 MG in Sodium Chloride 0.9% 100 ML IV PRN (12:51)
[2020-01-05] MEDS ORDERED: Lidocaine 1% 50 ML MDV INJECT PRN (12:51)
[2020-01-05] MEDS ORDERED: Sodium Chloride 0.9% 10 ML SDV IV PRN (12:51)
[2020-01-05] MEDS ORDERED: Methylergonovine 0.2 MG/1 ML Amp IM PRN (12:51)
[2020-01-05] MEDS ORDERED: Terbutaline 1 MG/ML SDV SUBCUT PRN (12:51)
[2020-01-05] MEDS ORDERED: Lactated Ringers 1,000 ML IV SCH (13:00)
[2020-01-05] MEDS ORDERED: Oxytocin/0.9 % Sodium Chloride 30 UNIT/500 ML BAG IV SCH ×2 (13:00)
[2020-01-05] MEDS ORDERED: Docusate Sodium 100 MG Cap PO PRN (16:45)
[2020-01-05] MEDS ORDERED: Acetaminophen 500 MG Tab PO PRN (16:45)
[2020-01-05] MEDS ORDERED: Lanolin 100% Cream 7 GM Tube TOP PRN (16:45)
[2020-01-05] MEDS ORDERED: Benzocaine/Menthol 20%-0.5% Spray 78 GM Cannister TOP PRN (16:45)
[2020-01-05] MEDS ORDERED: Bisacodyl 10 MG Supp RECTAL PRN (16:45)
[2020-01-05] MEDS ORDERED: Witch Hazel Medicated Pads 40/Jar TOP PRN (16:45)
[2020-01-05] MEDS ORDERED: oxyCODONE 5 MG Tab PO PRN (16:45)
--- NOTE | 2020-01-05 16:50 | PCM.DEL ---
L & D Note - General Info Date of Service: 01/05/20 Mother's Due Date: 01/05/20 - Delivery Note Labor: Augmented by Oxytocin Delivery Outcome: Livebirth Infant Delivery Method: Spontaneous Vaginal Delivery-Single Presentation: Vertex Nuchal Cord: Present Anesthesia Type: None Amniotic Fluid Description: Clear Episiotomy Type: None Laceration: None Placenta: Intact, Spontaneous Cord: 3 Vessels : Bulb Syringe, Stimulated Score 1 min: 8 Score 5 min: 9 - General Info Date of Service: 01/05/20 - Patient Data Weight - Most Recent: 89.811 kg Lab Results Last 24 Hours: Laboratory Results - last 24 hr 01/05/20 01/05/20 01/05/20 Range/Units 11:50 13:26 13:26 WBC 14.65 H (4.0-11.0) K/uL RBC 4.79 (4.30-5.90) M/uL Hgb 12.4 (12.0-16.0) g/dL Hct 39.3 (36.0-46.0) % MCV 82.0 (80.0-98.0) fL MCH 25.9 L (27.0-32.0) pg MCHC 31.6 (31.0-37.0) g/dL RDW Std Deviation 47.2 (28.0-62.0) fl RDW Coeff of [place] 16 H (11.0-15.0) % Plt Count 222 (150-400) K/uL MPV 10.50 (7.40-12.00) fL Nucleated RBC % 0.0 /100WBC Nucleated RBCs # 0 K/uL Membrane Rupture POSITIVE Blood Type O NEGATIVE Antibody Screen NEGATIVE Med Orders - Current: Current Medications Acetaminophen (Tylenol Extra Strength) 1,000 mg PO Q6H PRN PRN Reason: Pain Benzocaine/Menthol (Dermoplast Pain Relief 20%-0.5% [place]) 78 gm TOP ASDIRECTED PRN PRN Reason: Perineal Comfort Measure Bisacodyl (Dulcolax) 10 mg RECTAL ONETIME PRN PRN Reason: Constipation Butorphanol Tartrate (Stadol) 1 mg IVPUSH Q1H PRN PRN Reason: Pain Carboprost Tromethamine (Hemabate Ds) 250 mcg IM ASDIRECTED PRN PRN Reason: Post Hemorrhage Docusate Sodium (Colace) 100 mg PO BID PRN PRN Reason: Constipation Emollient Ointment (Lansinoh Hpa) 0 gm TOP ASDIRECTED PRN PRN Reason: Sore Nipples Tranexamic Acid 1,000 mg/ (Sodium Chloride) 110 mls @ 660 mls/hr IV ONETIME PRN PRN Reason: Bleeding Lactated Ringer's (Ringers, Lactated) 1,000 mls @ 150 mls/hr IV ASDIRECTED EMILY Last Admin: 01/05/20 13:36 Dose: 150 mls/hr Oxytocin/Sodium Chloride (Oxytocin 30 Unit/500 Ml-Ns) 30 unit in 500 mls @ 500 mls/hr IV TITRATE EMILY Oxytocin/Sodium Chloride (Oxytocin 30 Unit/500 Ml-Ns) 30 unit in 500 mls @ 2 mls/hr IV TITRATE [facility]; Protocol Last Admin: 01/05/20 13:37 Dose: 2 munits/min, 2 mls/hr Ibuprofen (Motrin) 800 mg PO Q8H PRN PRN Reason: Pain Lidocaine HCl (Xylocaine 1%) 50 ml INJECT ONETIME PRN PRN Reason: Laceration repair Methylergonovine Maleate (Methergine) 0.2 mg IM ASDIRECTED PRN PRN Reason: Post Hemorrhage Misoprostol (Cytotec) 200 mcg PO ONETIME PRN PRN Reason: Post Hemorrhage Nalbuphine HCl (Nubain) 10 mg IVPUSH Q1H PRN PRN Reason: Pain (severe 7-10) Oxycodone HCl (Oxycodone) 5 mg PO Q2H PRN PRN Reason: Pain Sodium Chloride (Saline Flush) 10 ml FLUSH ASDIRECTED PRN PRN Reason: Keep Vein Open Sodium Chloride (Saline Flush) 2.5 ml FLUSH ASDIRECTED PRN PRN Reason: Keep Vein Open Sodium Chloride (Normal Saline) 10 ml IV ASDIRECTED PRN PRN Reason: IV Use Sterile Water (Sterile Water For Irrigation) 1,000 ml IRR ASDIRECTED PRN PRN Reason: delivery Terbutaline Sulfate (Brethine) 0.25 mg SUBCUT ASDIRECTED PRN PRN Reason: Tacysystole Witch Vera (Tucks) 1 pad TOP ASDIRECTED PRN PRN Reason: comfort care - Problem List & Annotations (1) Vaginal delivery SNOMED Code(s): 765409081 Code(s): O80 - ENCOUNTER FOR FULL-TERM UNCOMPLICATED DELIVERY Status: Acute Current Visit: Yes - Problem List Review Problem List Initiated/Reviewed/Updated: Yes - My Orders Last 24 Hours: My Active Orders 01/05/20 12:04 Non Stress Test [RC] PER UNIT ROUTINE Up ad Lu [RC] ASDIRECTED Vaginal Exam [RC] Click to Edit Vital Signs [RC] PER UNIT ROUTINE Resuscitation Status Routine 01/05/20 12:51 Patient Status [ADT] Routine Bedrest Bathroom Privileges [RC] ASDIRECTED Communication Order [RC] ASDIRECTED Communication Order [RC] ASDIRECTED Heart Tones [RC] CONTINUOUS Non Stress Test [RC] PER UNIT ROUTINE May Shower [RC] ASDIRECTED Notify Provider [RC] PRN Notify Provider [RC] PRN Notify Provider [RC] STAT Oxygen Therapy [RC] ASDIRECTED Up ad Lu [RC] ASDIRECTED Vaginal Exam [RC] PRN Vaginal Exam [RC] PRN Vital Signs [RC] PER UNIT ROUTINE Vital Signs [RC] PER UNIT ROUTINE Butorphanol [Stadol] 1 mg IVPUSH Q1H PRN Carboprost Tromethamine [Hemabate DS] 250 mcg IM ASDIRECTED PRN Lidocaine 1% [Xylocaine 1%] 50 ml INJECT ONETIME PRN Methylergonovine [Methergine] 0.2 mg IM ASDIRECTED PRN Nalbuphine [Nubain] 10 mg IVPUSH Q1H PRN Sodium Chloride 0.9% [Normal Saline] 10 ml IV ASDIRECTED PRN Sodium Chloride 0.9% [Saline Flush] 10 ml FLUSH ASDIRECTED PRN Sodium Chloride 0.9% [Saline Flush] 2.5 ml FLUSH ASDIRECTED PRN Terbutaline [Brethine] 0.25 mg SUBCUT ASDIRECTED PRN Tranexamic Acid [Cyklokapron] 1,000 mg Sodium Chloride 0.9% [Normal Saline] 100 ml IV ONETIME Water For Irrigation,Sterile [Sterile Water for Irrigation] 1,000 ml IRR ASDIRECTED PRN miSOPROStoL [Cytotec] 200 mcg PO ONETIME PRN Scalp Electrode [WOMSER] Per Unit Routine Peripheral IV Insertion Adult [OM.PC] Routine 01/05/20 13:00 Lactated Ringers [Ringers, Lactated] 1,000 ml IV ASDIRECTED Oxytocin/0.9 % Sodium Chloride [Oxytocin 30 Unit/500 ML-NS] 30 unit in 500 ml IV TITRATE Oxytocin/0.9 % Sodium Chloride [Oxytocin 30 Unit/500 ML-NS] 30 unit in 500 ml IV TITRATE Medication Administration Instruction [OM.PC] Q3H 01/05/20 13:26 RPR (SYPHILIS SERO) W/ RFLX [REF] Routine 01/05/20 16:45 Patient Status [ADT] Routine May Shower [RC] ASDIRECTED Notify Provider Vital Signs [RC] ASDIRECTED Up ad Lu [RC] ASDIRECTED Vital Signs [RC] PER UNIT ROUTINE RHIG WORKUP, [BBK] Routine Acetaminophen [Tylenol Extra Strength] 1,000 mg PO Q6H PRN Benzocaine/Menthol [Dermoplast Pain Relief 20%-0.5% [place]] 78 gm TOP ASDIRECTED PRN Docusate Sodium [Colace] 100 mg PO BID PRN Ibuprofen [Motrin] 800 mg PO Q8H PRN Lanolin [Lansinoh HPA] See Dose Instructions TOP ASDIRECTED PRN bisacodyL [Dulcolax] 10 mg RECTAL ONETIME PRN oxyCODONE 5 mg PO Q2H PRN witch Vera [Tucks] 1 pad TOP ASDIRECTED PRN Assess Lochia [WOMSER] Per Unit Routine Assess Uterine Involution [WOMSER] Per Unit Routine Breast Pump [WOMSER] Per Unit Routine Peripheral IV Discontinue [OM.PC] Routine 01/05/20 16:46 Cooling Warming Measures [RC] ASDIRECTED Ice Therapy [OM.PC] Per Unit Routine Perineal Care [OM.PC] Per Unit Routine Sitz Bath [OM.PC] Per Unit Routine 01/05/20 Dinner Regular Diet [DIET] 01/06/20 05:11 HEMOGLOBIN/HEMATOCRIT,HH [HEME] Timed - Assessment Assessment:: 29yo s/p at 40w0d - Plan Plan:: Admit to unit for routine care. Rh studies due to Rh negative.
--- NOTE | 2020-01-05 18:11 | OR ---
SURGEON: Suzanne Vickers MD DATE OF PROCEDURE: 01/05/2020 PREOPERATIVE DIAGNOSES: 1. A 29-year-old, P3, P2-0-0-2, at 40 weeks and 0 day's gestation. 2. Spontaneous rupture of membranes. 3. Group B Streptococcus negative. POSTOPERATIVE DIAGNOSES: 1. A 29-year-old G3, P3-0-0-3, status post spontaneous vaginal delivery at 40 weeks and 0 day's gestation. 2. Group B Streptococcus negative. PROCEDURE: Spontaneous vaginal delivery. PRIMARY SURGEON: Suzanne Vickers MD. ANESTHESIA: None. ESTIMATED BLOOD LOSS: 300 mL. FINDINGS: Live female in cephalic presentation. score 9 and 9 at one and five minutes respectively. Placenta intact and with 3-vessel cord. Nuchal cord x1. No lacerations. INDICATIONS: This is a 29-year-old, G3, P2-0-0-2, who presented at 40 weeks and 0 days gestation after rupture of membranes at home at roughly 2 o'clock in the morning. Upon presentation, she was found to be 1 to 2 cm dilated and was not ashley. She was begun on Pitocin for induction of labor after premature rupture of membranes. She progressed to complete cervical dilation, and I was called to the room. DESCRIPTION OF PROCEDURE: The patient progressed to complete cervical dilation. The patient began pushing and the head was quickly delivered followed by the shoulders and remainder of the body. The nuchal cord x1 was reduced after delivery of the body. The infant was placed on the maternal abdomen. After the cord stopped pulsating, the cord was clamped and cut. The placenta then delivered intact and with 3- vessel cord via the Aragno-Monte maneuver. The perineum was inspected. No lacerations were noted. The fundus was firm with minimal lochia. Estimated blood loss 300 mL. The patient and the tolerated the delivery well. [id number] / MODL /[id number] MTDD
[2020-01-05] MEDS: Ibuprofen 800 MG Tab PO PRN (19:57)
[2020-01-06] MEDS: Ibuprofen 800 MG Tab PO PRN ×2 (06:02→13:34)
--- NOTE | 2020-01-06 12:26 | PCM.PNPP ---
- General Info Date of Service: 01/06/20 Admission Dx/Problem (Free Text): Patient doing well, no complaints today. going well. Functional Status: Reports: Pain Controlled, Tolerating Diet, Ambulating, Urinating - Review of Systems General: Reports: No Symptoms HEENT: Reports: No Symptoms Pulmonary: Reports: No Symptoms Cardiovascular: Reports: No Symptoms Gastrointestinal: Reports: No Symptoms Genitourinary: Reports: No Symptoms Musculoskeletal: Reports: No Symptoms Skin: Reports: No Symptoms Neurological: Reports: No Symptoms Psychiatric: Reports: No Symptoms - Patient Data Vital Signs - Most Recent: Last Vital Signs Temp 36.6 C 01/06/20 08:00 Pulse 102 H 01/06/20 08:00 Resp 18 01/06/20 08:00 BP 121/68 01/06/20 08:00 Pulse Ox 97 01/06/20 08:00 Weight - Most Recent: 89.811 kg I&O - Last 24 Hours: Intake & Output 01/05/20 01/06/20 01/06/20 21:59 06:59 14:59 Intake Total 2 Balance 2 Lab Results - Last 24 Hours: Laboratory Results - last 24 hr 01/05/20 01/05/20 01/05/20 Range/Units 11:50 13:26 13:26 WBC 14.65 H (4.0-11.0) K/uL RBC 4.79 (4.30-5.90) M/uL Hgb 12.4 (12.0-16.0) g/dL Hct 39.3 (36.0-46.0) % MCV 82.0 (80.0-98.0) fL MCH 25.9 L (27.0-32.0) pg MCHC 31.6 (31.0-37.0) g/dL RDW Std Deviation 47.2 (28.0-62.0) fl RDW Coeff of [place] 16 H (11.0-15.0) % Plt Count 222 (150-400) K/uL MPV 10.50 (7.40-12.00) fL Nucleated RBC % 0.0 /100WBC Nucleated RBCs # 0 K/uL Membrane Rupture POSITIVE Blood Type O NEGATIVE Antibody Screen NEGATIVE Screen (NEGATIVE) RhIG Candidate? Rhogam Indicated 01/05/20 01/06/20 Range/Units 17:19 06:05 WBC (4.0-11.0) K/uL RBC (4.30-5.90) M/uL Hgb 12.3 (12.0-16.0) g/dL Hct 39.0 (36.0-46.0) % MCV (80.0-98.0) fL MCH (27.0-32.0) pg MCHC (31.0-37.0) g/dL RDW Std Deviation (28.0-62.0) fl RDW Coeff of [place] (11.0-15.0) % Plt Count (150-400) K/uL MPV (7.40-12.00) fL Nucleated RBC % /100WBC Nucleated RBCs # K/uL Membrane Rupture Blood Type Antibody Screen Screen NEGATIVE (NEGATIVE) RhIG Candidate? YES Rhogam Indicated YES, BABY RH POS H Med Orders - Current: Current Medications Acetaminophen (Tylenol Extra Strength) 1,000 mg PO Q6H PRN PRN Reason: Pain Benzocaine/Menthol (Dermoplast Pain Relief 20%-0.5% D Lo) 78 gm TOP ASDIRECTED PRN PRN Reason: Perineal Comfort Measure Last Admin: 01/05/20 20:00 Dose: 1 can Bisacodyl (Dulcolax) 10 mg RECTAL ONETIME PRN PRN Reason: Constipation Butorphanol Tartrate (Stadol) 1 mg IVPUSH Q1H PRN PRN Reason: Pain Carboprost Tromethamine (Hemabate Ds) 250 mcg IM ASDIRECTED PRN PRN Reason: Post Hemorrhage Docusate Sodium (Colace) 100 mg PO BID PRN PRN Reason: Constipation Emollient Ointment (Lansinoh Hpa) 0 gm TOP ASDIRECTED PRN PRN Reason: Sore Nipples Last Admin: 01/05/20 19:58 Dose: 7 gram Tranexamic Acid 1,000 mg/ (Sodium Chloride) 110 mls @ 660 mls/hr IV ONETIME PRN PRN Reason: Bleeding Lactated Ringer's (Ringers, Lactated) 1,000 mls @ 150 mls/hr IV ASDIRECTED EMILY Last Admin: 01/05/20 13:36 Dose: 150 mls/hr Oxytocin/Sodium Chloride (Oxytocin 30 Unit/500 Ml-Ns) 30 unit in 500 mls @ 500 mls/hr IV TITRATE EMILY Last Admin: 01/05/20 18:04 Dose: 500 mls/hr Oxytocin/Sodium Chloride (Oxytocin 30 Unit/500 Ml-Ns) 30 unit in 500 mls @ 2 mls/hr IV TITRATE EMILY; Protocol Last Admin: 01/05/20 13:37 Dose: 2 munits/min, 2 mls/hr Ibuprofen (Motrin) 800 mg PO Q8H PRN PRN Reason: Pain Last Admin: 01/06/20 06:02 Dose: 800 mg Lidocaine HCl (Xylocaine 1%) 50 ml INJECT ONETIME PRN PRN Reason: Laceration repair Methylergonovine Maleate (Methergine) 0.2 mg IM ASDIRECTED PRN PRN Reason: Post Hemorrhage Last Admin: 01/05/20 17:38 Dose: 0.2 mg Misoprostol (Cytotec) 200 mcg PO ONETIME PRN PRN Reason: Post Hemorrhage Nalbuphine HCl (Nubain) 10 mg IVPUSH Q1H PRN PRN Reason: Pain (severe 7-10) Oxycodone HCl (Oxycodone) 5 mg PO Q2H PRN PRN Reason: Pain Sodium Chloride (Saline Flush) 10 ml FLUSH ASDIRECTED PRN PRN Reason: Keep Vein Open Sodium Chloride (Saline Flush) 2.5 ml FLUSH ASDIRECTED PRN PRN Reason: Keep Vein Open Sodium Chloride (Normal Saline) 10 ml IV ASDIRECTED PRN PRN Reason: IV Use Sterile Water (Sterile Water For Irrigation) 1,000 ml IRR ASDIRECTED PRN PRN Reason: delivery Terbutaline Sulfate (Brethine) 0.25 mg SUBCUT ASDIRECTED PRN PRN Reason: Tacysystole Witch Vera (Tucks) 1 pad TOP ASDIRECTED PRN PRN Reason: comfort care Last Admin: 01/05/20 19:59 Dose: 1 tub - Infant Interaction Infant Disposition, : [place] at Bedside Feeding: Attempted ; Nursed Fair/Poor Support Person: - Recovery Exam Fundal Tone: Firm Fundal Level: 1 Fingerbreadths Below Umbilicus Fundal Placement: Midline Lochia Amount: Scant Lochia Color: Rubra/Red Bladder Status: Voiding - Exam General: Alert, Oriented Neck: Supple Lungs: Clear to Auscultation, Normal Respiratory Effort Cardiovascular: Regular Rate, Regular Rhythm GI/Abdominal Exam: Soft, Non-Tender Extremities: Non-Tender Skin: Warm Neurological: No New Focal Deficit Psy/Mental Status: Alert, Normal Affect, Normal Mood - Problem List & Annotations (1) Vaginal delivery SNOMED Code(s): 926582192 Code(s): O80 - ENCOUNTER FOR FULL-TERM UNCOMPLICATED DELIVERY Status: Acute Current Visit: Yes - Problem List Review Problem List Initiated/Reviewed/Updated: Yes - My Orders Last 24 Hours: My Active Orders 01/05/20 12:04 Up ad Lu [RC] ASDIRECTED Vital Signs [RC] PER UNIT ROUTINE Resuscitation Status Routine 01/05/20 12:51 Patient Status [ADT] Routine May Shower [RC] ASDIRECTED Up ad Lu [RC] ASDIRECTED Vital Signs [RC] PER UNIT ROUTINE Vital Signs [RC] PER UNIT ROUTINE Butorphanol [Stadol] 1 mg IVPUSH Q1H PRN Carboprost Tromethamine [Hemabate DS] 250 mcg IM ASDIRECTED PRN Lidocaine 1% [Xylocaine 1%] 50 ml INJECT ONETIME PRN Methylergonovine [Methergine] 0.2 mg IM ASDIRECTED PRN Nalbuphine [Nubain] 10 mg IVPUSH Q1H PRN Sodium Chloride 0.9% [Normal Saline] 10 ml IV ASDIRECTED PRN Sodium Chloride 0.9% [Saline Flush] 10 ml FLUSH ASDIRECTED PRN Sodium Chloride 0.9% [Saline Flush] 2.5 ml FLUSH ASDIRECTED PRN Terbutaline [Brethine] 0.25 mg SUBCUT ASDIRECTED PRN Tranexamic Acid [Cyklokapron] 1,000 mg Sodium Chloride 0.9% [Normal Saline] 100 ml IV ONETIME Water For Irrigation,Sterile [Sterile Water for Irrigation] 1,000 ml IRR ASDIRECTED PRN miSOPROStoL [Cytotec] 200 mcg PO ONETIME PRN Scalp Electrode [WOMSER] Per Unit Routine Peripheral IV Insertion Adult [OM.PC] Routine 01/05/20 13:00 Lactated Ringers [Ringers, Lactated] 1,000 ml IV ASDIRECTED Oxytocin/0.9 % Sodium Chloride [Oxytocin 30 Unit/500 ML-NS] 30 unit in 500 ml IV TITRATE Oxytocin/0.9 % Sodium Chloride [Oxytocin 30 Unit/500 ML-NS] 30 unit in 500 ml IV TITRATE Medication Administration Instruction [OM.PC] Q3H 01/05/20 13:26 RPR (SYPHILIS SERO) W/ RFLX [REF] Routine 01/05/20 16:45 Patient Status [ADT] Routine Notify Provider Vital Signs [RC] ASDIRECTED Acetaminophen [Tylenol Extra Strength] 1,000 mg PO Q6H PRN Benzocaine/Menthol [Dermoplast Pain Relief 20%-0.5% D Lo] 78 gm TOP ASDIRECTED PRN Docusate Sodium [Colace] 100 mg PO BID PRN Ibuprofen [Motrin] 800 mg PO Q8H PRN Lanolin [Lansinoh HPA] See Dose Instructions TOP ASDIRECTED PRN bisacodyL [Dulcolax] 10 mg RECTAL ONETIME PRN oxyCODONE 5 mg PO Q2H PRN witch Vera [Tucks] 1 pad TOP ASDIRECTED PRN Assess Lochia [WOMSER] Per Unit Routine Assess Uterine Involution [WOMSER] Per Unit Routine Breast Pump [WOMSER] Per Unit Routine Peripheral IV Discontinue [OM.PC] Routine 01/05/20 16:46 Ice Therapy [OM.PC] Per Unit Routine Perineal Care [OM.PC] Per Unit Routine Sitz Bath [OM.PC] Per Unit Routine 01/05/20 Dinner Regular Diet [DIET] 01/06/20 12:25 Ready for Discharge [RC] PER UNIT ROUTINE - Assessment Assessment:: 29yo s/p at 40w0d, PPD#1. - Plan Plan:: Patient desires discharge home today. Has received Rhogam. Reviewed discharge instructions. All questions answered.
[2020-01-06 20:45] VITALS: BP 126/68; PULSE 101
== END 2020-01-06 20:10 | disposition home or self-care (01) | DRG 807 ==
LOC: MW.OBCHECK 12:00 → MW.OB 12:03 → MW.OBCHECK 16:28 → MW.OB 16:28 → OBSVTOIN 16:45 → MW.OB 20:51
PROVIDERS: ADMIT Obstetrics & Gynecology; ATTEND Obstetrics & Gynecology
PROC: 10E0XZZ Delivery of Products of Conception, External Approach (ICD-10-PCS; principal; 2020-01-05)
PROC: 3E033VJ Introduction of Other Hormone into Peripheral Vein, Percutaneous Approach (ICD-10-PCS; 2020-01-05)
DX: O48.0 Post-term pregnancy (principal); Z37.0 Single live birth; O69.81X0 Labor and delivery complicated by cord around neck, without compression, not applicable or unspecified; O42.02 Full-term premature rupture of membranes, onset of labor within 24 hours of rupture; Z3A.40 40 weeks gestation of pregnancy
CPT/HCPCS: 36415; 59025; 59409; 84112; 85014; 85018; 85027; 85460; 86592; 86850; 86900; 86901; A9270-GY; J2210; J2590; J2792; J7120

== ENCOUNTER 2020-07-25 06:38 | Day surgery (SDC) | payer OTHER ==
[~2020-07-25 06:38] MED LIST: Lactated Ringers 1,000 ML IV SCH; Sodium Chloride 0.9% 10 ML SDV IV PRN; Sodium Chloride 0.9% 10 ML Syringe FLUSH PRN; Sodium Chloride 0.9% 2.5 ML Syringe FLUSH PRN
[2020-07-25] MEDS ORDERED: Propofol 200 MG/20 ML SDV ONE ×2 (07:29→08:39)
[2020-07-25] MEDS ORDERED: fentaNYL 100 MCG/2 ML SDV ONE (07:29)
[2020-07-25] MEDS ORDERED: Ketorolac 30 MG/ML SDV ONE (07:30)
[2020-07-25] MEDS ORDERED: Dexamethasone 4 MG/ML 5 ML MDV ONE (07:30)
[2020-07-25] MEDS ORDERED: Midazolam 1 MG/ML 2 ML SDV ONE (07:30)
[2020-07-25] MEDS ORDERED: Ondansetron 4 MG/2 ML SDV ONE (07:30)
[2020-07-25] MEDS ORDERED: Lidocaine 2% 5 ML SDV ONE (07:30)
[2020-07-25] MEDS ORDERED: Lidocaine 1% with EPINEPHrine 1:100,000 20 ML MDV ONE (07:31)
--- NOTE | 2020-07-25 08:04 | PCM.PREANE ---
Preanesthetic Assessment - Anesthesia/Transfusion/Family Hx Anesthesia History: Prior Anesthesia Without Reaction Family History of Anesthesia Reaction: No Transfusion History: No Prior Transfusion(s) - Review of Systems General: No Symptoms Pulmonary: No Symptoms Cardiovascular: No Symptoms Gastrointestinal: No Symptoms Neurological: No Symptoms Other: Reports: None - Physical Assessment NPO Status Date: 07/24/20 Height: 5 ft 7 in Weight: 97.522 kg ASA Class: 1 Mental Status: Alert & Oriented x3 Airway Class: Mallampati = 2 Dentition: Reports: Normal Dentition ROM/Head Extension: Full Lungs: Clear to Auscultation, Normal Respiratory Effort Cardiovascular: Regular Rate, Regular Rhythm - Lab Values: Laboratory Last Values WBC 5.31 K/uL (4.0-11.0) 07/25/20 07:40 RBC 4.88 M/uL (4.30-5.90) 07/25/20 07:40 Hgb 13.5 g/dL (12.0-16.0) 07/25/20 07:40 Hct 43.1 % (36.0-46.0) 07/25/20 07:40 MCV 88.3 fL (80.0-98.0) 07/25/20 07:40 MCH 27.7 pg (27.0-32.0) 07/25/20 07:40 MCHC 31.3 g/dL (31.0-37.0) 07/25/20 07:40 RDW Std Deviation 43.5 fl (28.0-62.0) 07/25/20 07:40 RDW Coeff of [place] 13 % (11.0-15.0) 07/25/20 07:40 Plt Count 209 K/uL (150-400) 07/25/20 07:40 MPV 10.50 fL (7.40-12.00) 07/25/20 07:40 Nucleated RBC % 0.0 /100WBC 07/25/20 07:40 Nucleated RBCs # 0 K/uL 07/25/20 07:40 SARS-CoV-2 RNA (KAVON) NEGATIVE (NEGATIVE) 07/25/20 06:30 - Allergies Allergies/Adverse Reactions: Allergies Allergy/AdvReac Type Severity Reaction Status Date / Time No Known Allergies Allergy Verified 07/23/20 14:25 - Blood Blood Available: No - Anesthesia Plan Pre-Op Medication Ordered: None - Acknowledgements Anesthesia Type Planned: General Anesthesia Pt an Appropriate Candidate for the Planned Anesthesia: Yes Alternatives and Risks of Anesthesia Discussed w Pt/Guardian: Yes Pt/Guardian Understands and Agrees with Anesthesia Plan: Yes 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: Musculoskeletal History: Reports: Fracture Other Musculoskeletal History: hx of fx finger Endocrine/Metabolic History: Reports: Obesity/BMI 30+ - Infectious Disease History Infectious Disease History: Reports: Chicken Pox, Mononucleosis - Past Surgical History Head Surgeries/Procedures: Reports: None HEENT Surgical History: Reports: Oral Surgery Other HEENT Surgeries/Procedures: removal of wisdom teeth Female Surgical History: Reports: Breast Biopsy, Breast Implant Musculoskeletal Surgical History: Reports: Shoulder Surgery Other Musculoskeletal Surgeries/Procedures:: Labrim repair and RTCR right shoulder- has screw in right shoulder (plastic?) - SUBSTANCE USE Smoking Status *Q: Never Smoker Recreational Drug Use History: No - HOME MEDS Home Medications: Home Meds . [No Known Home Meds] 07/23/20 [History] - CURRENT (IN HOUSE) MEDS Current Meds: Current Medications Lactated Ringer's (Ringers, Lactated) 1,000 mls @ 125 mls/hr IV ASDIRECTED EMILY Sodium Chloride (Saline Flush) 10 ml FLUSH ASDIRECTED PRN PRN Reason: Keep Vein Open Sodium Chloride (Saline Flush) 2.5 ml FLUSH ASDIRECTED PRN PRN Reason: Keep Vein Open Sodium Chloride (Normal Saline) 10 ml IV ASDIRECTED PRN PRN Reason: IV Use Discontinued Medications Dexamethasone (Dexamethasone) Confirm Administered Dose 20 mg .ROUTE .STK-MED ONE Stop: 07/25/20 07:31 Fentanyl (Sublimaze) Confirm Administered Dose 100 mcg .ROUTE .STK-MED ONE Stop: 07/25/20 07:30 Ketorolac Tromethamine (Toradol) Confirm Administered Dose 30 mg .ROUTE .STK-MED ONE Stop: 07/25/20 07:31 Lidocaine (Xylocaine-Mpf 2%) Confirm Administered Dose 5 ml .ROUTE .STK-MED ONE Stop: 07/25/20 07:31 Lidocaine/Epinephrine (Xylocaine 1% With Epinephrine 1:100,000) Confirm Administered Dose 20 ml .ROUTE .STK-MED ONE Stop: 07/25/20 07:32 Midazolam HCl (Versed 1 Mg/Ml) Confirm Administered Dose 2 mg .ROUTE .STK-MED ONE Stop: 07/25/20 07:31 Ondansetron HCl (Zofran) Confirm Administered Dose 4 mg .ROUTE .STK-MED ONE Stop: 07/25/20 07:31 Propofol (Diprivan 20 Ml) Confirm Administered Dose 400 mg .ROUTE .STK-MED ONE Stop: 07/25/20 07:30
[2020-07-25] MEDS ORDERED: Albuterol 0.083% 2.5 MG/3 ML Neb Soln NEB PRN (09:08)
[2020-07-25] MEDS ORDERED: 50% Dextrose in Water 50 ML Syringe IVPUSH PRN (09:08)
[2020-07-25] MEDS ORDERED: EPINEPHrine 1:10,000 1 MG/10 ML Syringe IVPUSH PRN (09:08)
[2020-07-25] MEDS ORDERED: Atropine 0.1 MG/ML 10 ML Syringe IVPUSH PRN ×2 (09:08)
[2020-07-25] MEDS ORDERED: Naloxone 0.4 MG/ML Syringe IVPUSH PRN (09:08)
[2020-07-25] MEDS ORDERED: fentaNYL 100 MCG/2 ML SDV IVPUSH PRN (09:08)
--- NOTE | 2020-07-25 09:21 | PCM.OPNOTE ---
- General Post-Op/Procedure Note Date of Surgery/Procedure: 07/25/20 Operative Procedure(s): Loop electrosurgical excision Procedure Findings: Normal sized anteverted uterus Cervix stained with lugol's iodine showed hogan stain on the ectocervix about 0.5cm from the cervical os (circumferential) Specimen taken in 3 passes 2posterior passes ( 1 upper and 1 lower) 1 anterior pass Pre Op Diagnosis: LILIANE 2 Post-Op Diagnosis: same Anesthesia Technique: General ET Tube Primary Surgeon: Tone Peña Anesthesia Provider: Eric Diana Split Fluid Replacement, Intraop: 1,000 EBL in mLs: 5 Complications: None Condition: Good Free Text/Narrative:: Intake & Output 07/24/20 07/25/20 07/25/20 22:59 06:59 14:59 Intake Total 1300 Balance 1300
[2020-07-25 09:41] VITALS: BP 123/45; PULSE 67
--- NOTE | 2020-07-25 09:53 | PCM48HPAN ---
Post Anesthesia Note - EVALUATION WITHIN 48HRS OF ANESTHETIC Vital Signs in Normal Range: Yes Patient Participated in Evaluation: Yes Respiratory Function Stable: Yes Airway Patent: Yes Cardiovascular Function Stable: Yes Hydration Status Stable: Yes Pain Control Satisfactory: Yes Nausea and Vomiting Control Satisfactory: Yes Mental Status Recovered: Yes Vital Signs: Last Vital Signs Temp 96.4 F L 07/25/20 09:15 Pulse 67 07/25/20 09:15 Resp 15 07/25/20 09:15 BP 123/45 L 07/25/20 09:15 Pulse Ox 100 07/25/20 09:15
--- NOTE | 2020-07-29 12:01 | OR ---
SURGEON: MARITZA PEÑA DATE OF PROCEDURE: 07/25/2020 PREOPERATIVE DIAGNOSES: A 29-year-old with cervical intraepithelial neoplasia 2. POSTOPERATIVE DIAGNOSIS: A 29-year-old with cervical intraepithelial neoplasia 2. PROCEDURES: 1. Loop electrosurgical excision procedure. 2. Endocervical curetting. PRIMARY SURGEON: Maritza Peña MD ANESTHESIA: General. ESTIMATED BLOOD LOSS: Minimal. INTRAVENOUS FLUID: 1000 mL of LR. SPECIMENS: Three, one was the top cervical excision of the cervix, and we had two posterior portions, one was the middle, and one was the lower portion of the cervix, and ECC was also obtained. FINDINGS: The pertinent findings on bimanual exam revealed a normal-sized midline uterus with no adnexal masses. The cervix did not appear to have any gross masses. Lugol solution revealed areas of non-uptake around the entire squamocolumnar junction. INDICATIONS FOR THE PROCEDURE: The patient is a 29-year-old 3, para 3, with a history of LGSIL Pap. She had a colposcopy done, which showed LILIANE 2. ECC was negative. The patient was informed that she would need to undergo a LEEP procedure with the ECC. All risks, benefits, and alternatives were discussed with the patient, including the potential risk of labor, cervical incompetence, premature rupture of membrane, and may become in the future. The patient states she is not concerned about this because her has a vasectomy. She accepted the risks. All questions were answered, and the patient was taken to the operating room in stable condition. DESCRIPTION OF THE PROCEDURE: The patient was taken to the operating room, where she was placed under general anesthesia without difficulty. She was prepared and draped in the usual sterile fashion and placed in the dorsolithotomy position. A preoperative bimanual exam revealed the above-noted finding. At that time, an insulated speculum was placed into the vagina. Lugol's solution was used to paint along the entire cervix and vaginal wall. An area of non-uptake was noted to be around the entire squamocolumnar junction. Then, approximately 2 mL of Pitressin with Lidocaine was was injected circumferentially around the cervix. Then, a large loop electrode was used to remove the anterior and also the posterior portion of the cervix in 3 passes. ECC was then obtained. The base of the cervix was then coagulated with the rollerball electrode, and the base was also covered with Monsel's. Next, ECC was obtained prior to coagulating the base. Hemostasis was noted. All instruments were removed from the vagina. The patient tolerated the procedure and was sent to revive in recovery room in stable condition. SANDHYA ARAUZ /[id number] MTDD
== END 2020-07-25 10:00 | disposition home or self-care (01) ==
LOC: MW.SDS 06:38
PROVIDERS: ATTEND Obstetrics & Gynecology
DX: N87.1 Moderate cervical dysplasia (principal); Z01.812 Encounter for preprocedural laboratory examination; Z20.828 Contact with and (suspected) exposure to other viral communicable diseases; E66.9 Obesity, unspecified; Z98.890 Other specified postprocedural states; Z68.35 Body mass index [BMI] 35.0-35.9, adult
CPT/HCPCS: 57522; 84703; 85027; 87635; J1100; J1885; J2001; J2250; J2405; J2704; J7120; 00940; 88305; 88307; J3010; U0002